=== PATIENT | female | born 1970 | race African-American/Black ===

== ENCOUNTER 2017-02-01 17:05 | Emergency (ER) | payer OTHER ==
[2017-02-01 17:39] LABS: Bilirubin Negative (Negative); Blood, Urine Large (Negative); Glucose, Urine (Dipstick) >=1000 mg/dL (Negative); Ketone, Urine Negative (Negative); Nitrite Positive (Negative); Protein, Urine (Dipstick) Negative (Neg-Trace)
[2017-02-01 17:41] LABS: Bacteria/HPF 4+ HPF (None Seen); Hyaline Casts/LPF 0-3 HYALINE CAST LPF (0-3 Hyaline); RBC/HPF GREATER THAN 50-TNTC HPF (0-3); Squamous Epithelial None Seen HPF (0-3)
[2017-02-01] MEDS ORDERED: Acetaminophen 500 MG TAB ONE (17:43)
[2017-02-01] MEDS ORDERED: cefTRIAXone\\ROCEPHIN 1 GM VIAL ONE (17:45)
[2017-02-01] MEDS ORDERED: Sodium Chloride 0.9% 100 ML ONE (17:45)
[2017-02-01 18:04] LABS: #Basophils 0.1 thou/uL (0.0-0.2); #Lymphocytes 1.3 thou/uL (1.20-3.40); #Monocytes 0.5 thou/uL (0.11-0.59); #Neutrophils 4.6 thou/uL (1.40-6.50); %Basophils 0.8 % (0.0-1.0); %Eosinophils 0.1 % (0.0-10.0); %Lymphocytes 20.3 % (21.0-51.0); %Monocytes 8.2 % (0.0-10.0); Hematocrit 37.8 % (36.0-47.0); Mean Platelet Volume 7.6 fL (7.4-10.4); Red Blood Cell (RBC) Count 4.19 mill/uL (4.20-5.40); White Blood Cell (WBC) Count 6.6 thou/uL (4.8-10.8)
[2017-02-01 18:21] LABS: Lactic Acid - Sepsis 1.1 mmol/L (0.5-2.2)
[2017-02-01 18:22] LABS: ALT (SGPT) 36 U/L (8-55); AST (SGOT) 32 U/L (5-34); Alkaline Phosphatase 72 U/L (40-150); Anion Gap 11 mmol/L (10-20); BUN (Urea Nitrogen) 5 mg/dL (7.0-18.7); Bilirubin, Total 0.5 mg/dL (0.2-1.2); Calc. Creatinine Clearance 0 mL/min (70-130); Calcium 9.6 mg/dL (7.8-10.44); Carbon Dioxide 28 mmol/L (22-29); Chloride 98 mmol/L (98-107); Estimated GFR-MDRD 81; Globulin 4.2 g/dL (2.4-3.5)
== END 2017-02-01 19:35 | disposition home or self-care (01) ==
LOC: ERS 17:05
DX: N12 Tubulo-interstitial nephritis, not specified as acute or chronic (principal); E03.9 Hypothyroidism, unspecified; E78.5 Hyperlipidemia, unspecified; I10 Essential (primary) hypertension; E11.9 Type 2 diabetes mellitus without complications; F41.9 Anxiety disorder, unspecified
CPT/HCPCS: 80053; 81003; 81015; 81025; 83605; 85025; 87077; 87086; 87186; 96365; J0696; J7050

== ENCOUNTER 2018-10-12 14:12 | Emergency (ER) | payer OTHER, SELFPAY ==
[2018-10-12 16:13] LABS: #Basophils 0.1 thou/uL (0.0-0.2); #Eosinphils 0.1 thou/uL (0.0-0.7); #Lymphocytes 2.4 thou/uL (1.20-3.40); #Monocytes 0.5 thou/uL (0.11-0.59); #Neutrophils 3.7 thou/uL (1.40-6.50); %Basophils 1.2 % (0.0-1.0); %Eosinophils 0.8 % (0.0-10.0); %Lymphocytes 35.4 % (21.0-51.0); %Monocytes 7.3 % (0.0-10.0); %Neutrophils 55.3 % (42.0-75.0); Mean Corpuscular HGB CONC 33.8 g/dL (32.0-36.0); Mean Corpuscular Hemoglobin 30.3 pg (27.0-31.0); Mean Corpuscular Volume 89.7 fL (78.0-98.0); Mean Platelet Volume 9.1 fL (7.4-10.4); Platelet Count 251 thou/uL (130-400); RBC Distribution Width 13.1 % (11.5-14.5); Red Blood Cell (RBC) Count 3.63 mill/uL (4.20-5.40); White Blood Cell (WBC) Count 6.7 thou/uL (4.8-10.8)
[2018-10-12 16:34] LABS: ALT (SGPT) 18 U/L (8-55); AST (SGOT) 20 U/L (5-34); Albumin 3.6 g/dL (3.5-5.0); Alkaline Phosphatase 82 U/L (40-150); Anion Gap 11 mmol/L (10-20); BUN (Urea Nitrogen) 8 mg/dL (7.0-18.7); Bilirubin, Total 0.4 mg/dL (0.2-1.2); Calc. Creatinine Clearance 0 mL/min (70-130); Calcium 8.7 mg/dL (7.8-10.44); Carbon Dioxide 25 mmol/L (22-29); Chloride 102 mmol/L (98-107); Estimated GFR-MDRD 84; Globulin 2.8 g/dL (2.4-3.5); Glucose 260 mg/dL (70-105); Potassium 4.1 mmol/L (3.5-5.1); Protein, Total 6.4 g/dL (6.0-8.3); Sodium 134 mmol/L (136-145)
== END 2018-10-12 16:58 | disposition home or self-care (01) ==
LOC: ERS 14:12
DX: M79.89 Other specified soft tissue disorders (principal); E11.9 Type 2 diabetes mellitus without complications; Z79.4 Long term (current) use of insulin; E03.9 Hypothyroidism, unspecified; F41.9 Anxiety disorder, unspecified; Z79.84 Long term (current) use of oral hypoglycemic drugs; Z79.899 Other long term (current) drug therapy
CPT/HCPCS: 36415; 80053; 85025; 99283

== ENCOUNTER 2019-10-14 15:27 | Emergency (ER) | payer OTHER ==
[2019-10-15 15:41] LABS: SARS-CoV-2 MS2 Positive; SARS-CoV-2 N Gene Positive; SARS-CoV-2 S Gene Positive; SARS-CoV-2 orf1ab Positive
== END 2019-10-14 16:30 | disposition home or self-care (01) ==
LOC: ERS 15:27
DX: U07.1 COVID-19 (principal); E11.9 Type 2 diabetes mellitus without complications; E03.9 Hypothyroidism, unspecified; F41.9 Anxiety disorder, unspecified
CPT/HCPCS: 87635; 99283; U0003

== ENCOUNTER 2019-11-20 08:42 | Inpatient (IN) | payer OTHER ==
[2019-11-20 09:47] LABS: Hemoglobin 11.5 g/dL (12.0-16.0); Mean Corpuscular HGB CONC 32.1 g/dL (32.0-36.0); Mean Corpuscular Hemoglobin 26.2 pg (27.0-31.0); Mean Corpuscular Volume 81.7 fL (78.0-98.0); Mean Platelet Volume 10.2 fL (7.4-10.4); Platelet Count 319 thou/uL (130-400); RBC Distribution Width 20.1 % (11.5-14.5); Red Blood Cell (RBC) Count 4.39 mill/uL (4.20-5.40); White Blood Cell (WBC) Count 17.6 thou/uL (4.8-10.8)
[2019-11-20 09:56] LABS: BHCG - Serum Negative (NEGATIVE); Pregs Control Background? CLEAR/WHITE (CLR/WHITE); Pregs Control Bar Appear? YES (CONTROL BAR)
[2019-11-20 10:24] LABS: ALT (SGPT) 16 U/L (8-55); AST (SGOT) 20 U/L (5-34); Alkaline Phosphatase 82 U/L (40-110); Anion Gap 18 mmol/L (10-20); BUN (Urea Nitrogen) 8 mg/dL (7.0-18.7); Bilirubin, Total 0.7 mg/dL (0.2-1.2); Calc. Creatinine Clearance 0 mL/min (70-130); Calcium 9.6 mg/dL (7.8-10.44); Carbon Dioxide 22 mmol/L (22-29); Chloride 98 mmol/L (98-107); Estimated GFR-MDRD 70; Globulin 4.3 g/dL (2.4-3.5); Glucose 428 mg/dL (70-105); Potassium 4.2 mmol/L (3.5-5.1); Protein, Total 8.3 g/dL (6.0-8.3); Sodium 134 mmol/L (136-145)
[2019-11-20 10:56] LABS: Band 32 % (5-11); Lymphocytes 3 % (21-51); Metamyelocyte 1 % (0-0); Monocytes 7 % (0-10); Neutrophil 57 % (42-75); Platelet Morphology Comment Appears Adequate; Polychromasia SLIGHT = 2-3 cells (100X) (0-2/hpf)
[2019-11-20] MEDS ORDERED: Ondansetron PF 4 MG/2 ML Vial ONE (10:56)
[2019-11-20] MEDS ORDERED: Morphine 4 MG/ML VIAL ONE (10:56)
[2019-11-20 10:57] LABS: MDiff Complete? YES
[2019-11-20 11:12] LABS: CK (CPK) 71 U/L (29-168); Lipase 15 U/L (8-78)
[2019-11-20 11:25] LABS: Bilirubin Negative (Negative); Blood, Urine 3+ (Negative); Glucose, Urine (Dipstick) Greater than 1000 mg/dL (Negative); Ketone, Urine 40 mg/dL (Negative); Leukocyte 25 Leu/uL (Negative); Nitrite Negative (Negative); Protein, Urine (Dipstick) 20 mg/dL (Neg-Trace); Specific Gravity, Urine 1.021 (1.002-1.036); Urobilinogen Normal mg/dL (Less than 2)
[2019-11-20 11:33] LABS: Clarity Hazy (Clear); RBC/HPF Greater than 50 HPF (0-3)
[2019-11-20 11:34] LABS: Bacteria/HPF 3+ HPF (None Seen); Squamous Epithelial 0-3 HPF (0-3)
--- NOTE | 2019-11-20 12:01 | CT ---
CT ABDOMEN AND PELVIS WITH IV CONTRAST: Date: 11/20/2019 INDICATION: Left lower quadrant pain. No comparison. FINDINGS: Lung bases clear. Liver, spleen, and pancreas unremarkable. Stomach and duodenum unremarkable. Adrenal glands normal. Kidneys unremarkable. Small bowel loops appear normal caliber. Colon unremarkable. Aorta normal caliber. There is a large, heterogeneous mass arising from the pelvis and extending into the lower and mid abd omen. This mass appears most consistent with an enlarged uterus with numerous uterine fibroids. There is a large apparent fibroid projecting to the left of midline and there is enlarged uterus which karyna sures up to 6.0 cm. Internal lucency and gas indicates central necrosis. A secondary infection or gas -producing organisms cannot be excluded given the diffuse gas within this mass. There are other low density masses seen in this apparently enlarged uterus which would be consistent with numerous other necrotic fibroids. IMPRESSION: 1. A large, heterogeneous mass arises from the pelvis into the lower and mid abdomen. This appears t o most likely represent an enlarged uterus with numerous fibroids, several of which show low attenuat ion indicating necrosis. There is a 6.0 cm area of low attenuation within this enlarged uterus to the left of midline which has internal gas. Secondary infection with gas-producing organisms is the prim kojo concern. Findings relayed to Shona Garcia, nurse practitioner taking care of the patient in the ER. CODE CR. POS: JOJO
[2019-11-20] MEDS ORDERED: SODIUM CHLORIDE 0.9% IVPB SCH (12:45)
[2019-11-20] MEDS ORDERED: GENTAMICIN SULFATE IVPB SCH (12:45)
--- NOTE | 2019-11-20 13:01 | PDOC.FPRHP ---
- History of Present Illness Chief Complaint: Abdominal pain History of Present Illness: Consulted by Dr Tang for medical management of pts chronic medical problems. Ms Cortés is a 49yo female with pmh of diabetes, HLD, HTN, hypothyroidism who presents with abdominal pain of 3 days duration. Found to have necrotic fibroid as likely source of sepsis. Dr Tang has ordered Gentamicin for ABx in ED. She has been started on IV fluids but still febrile and tachycardic. Endorses fever , chills. Denies dysuria, vaginal bleeding, cough, SOB. ED Course: 4mg Morphine, 4mg Zofran, 2L NS, Gentamicin - Allergies/Adverse Reactions Allergies Allergy/AdvReac Type Severity Reaction Status Date / Time No Known Allergies Allergy Verified 11/20/19 15:53 - Home Medications Medication Instructions Recorded Confirmed Type Lisinopril [Zestril] 2.5 mg PO DAILY 02/06/13 11/20/19 History metFORMIN HCl 1,000 mg PO BID-WM 02/06/13 11/20/19 History Escitalopram Oxalate 10 mg PO QAM 11/20/19 11/20/19 History Ferrous Sulfate, Dried [Iron] 65 mg PO QAM 11/20/19 11/20/19 History HumuLIN 70/30 [HumuLIN 70/30 Vial] 10 units SC QAM 11/20/19 11/20/19 History HumuLIN 70/30 [HumuLIN 70/30 Vial] 15 units SC 11/20/19 11/20/19 History Levothyroxine Sodium [Euthyrox] 125 mg PO 0600 11/20/19 11/20/19 History Holland-3 Fatty Acids/Fish Oil [Fish 1 cap PO QAM 11/20/19 11/20/19 History Oil 1,000 mg Capsule] Rosuvastatin [Crestor] 10 mg PO DAILY 11/20/19 11/20/19 History - History PMHx: HTN, HLD, Hypothyroidism, IDDMII PSHx: Denies FHx: Mother & Father with cancer Social: Denies alcohol, tobacco and drug use. - Review of Systems General: reports: fever/chills, weight/appetite/sleep changes (decreased appetite, increased thirst) Eyes: denies: eye pain, vision changes ENT: denies: nasal congestion, rhinorrhea Respiratory: denies: cough, congestion, shortness of breath Cardiovascular: denies: chest pain Gastrointestinal: reports: abdominal pain. denies: nausea, vomiting, diarrhea, constipation Genitourinary: reports: incontinence (due to pain). denies: dysuria Skin: denies: rashes, lesions Musculoskeletal: denies: pain, swelling Neurological: denies: syncope, weakness - Vital signs BP: 172/96 HR:111 RR: 17 Tmax: 102.1 Pox: 100% on RA Wt: 113.4kg - Physical Exam Constitutional: NAD, awake, alert and oriented, well developed HEENT: normocephalic and atraumatic, PERRLA, conjunctiva clear, MMM, oropharynx clear -HEENT: Dry MM Neck: supple, trachea midline Heart: no murmurs/rubs/gallops -Heart: Tachycardic Lungs: CTAB, no respiratory distress, good air movement, no retractions Abdomen: soft, bowel sounds present, other (Enlarged uterus, tender to palpation , no rebound or rigidity) Musculoskeletal: normal structure Neurological: no focal deficit Skin: no rash/lesions, good turgor Heme/Lymphatic: no unusual bruising or bleeding Psychiatric: normal mood and affect, good judgment and insight, intact recent and remote memory FMR H&P: Results - Labs Result Diagrams: 11/21/19 06:12 11/21/19 06:12 Lab results: WBC 17.6 thou/uL (4.8-10.8) H 11/20/19 09:22 Hgb 11.5 g/dL (12.0-16.0) L 11/20/19 09:22 Hct 35.9 % (36.0-47.0) L 11/20/19 09:22 MCV 81.7 fL (78.0-98.0) 11/20/19 09:22 Plt Count 319 thou/uL (130-400) 11/20/19 09:22 Band Neuts % (Manual) 32 % (5-11) H 11/20/19 09:22 Sodium 134 mmol/L (136-145) L 11/20/19 09:22 Potassium 4.2 mmol/L (3.5-5.1) 11/20/19 09:22 Chloride 98 mmol/L (98-107) 11/20/19 09:22 Carbon Dioxide 22 mmol/L (22-29) 11/20/19 09:22 BUN 8 mg/dL (7.0-18.7) 11/20/19 09:22 Creatinine 1.02 mg/dL (0.6-1.1) 11/20/19 09:22 Glucose 428 mg/dL (70-105) H 11/20/19 09:22 Lactic Acid 2.6 mmol/L (0.5-2.2) H 11/20/19 09:22 Calcium 9.6 mg/dL (7.8-10.44) 11/20/19 09:22 Total Bilirubin 0.7 mg/dL (0.2-1.2) 11/20/19 09:22 AST 20 U/L (5-34) 11/20/19 09: ALT 16 U/L (8-55) 11/20/19 09:22 Alkaline Phosphatase 82 U/L (40-110) 11/20/19 09:22 Creatine Kinase 71 U/L (29-168) 11/20/19 09:24 Serum Total Protein 8.3 g/dL (6.0-8.3) 11/20/19 09:22 Albumin 4.0 g/dL (3.5-5.0) 11/20/19 09:22 Lipase 15 U/L (8-78) 11/20/19 09:24 Urine Ketones 40 mg/dL (Negative) A 11/20/19 11:01 Urine Blood 3+ (Negative) A 11/20/19 11:01 Urine Nitrite Negative (Negative) 11/20/19 11:01 Ur Leukocyte Esterase 25 David/uL (Negative) A 11/20/19 11:01 Urine RBC Greater than 50 HPF (0-3) A 11/20/19 11:01 Urine WBC 7-10 HPF (0-3) A 11/20/19 11:01 Ur Squamous Epith Cells 0-3 HPF (0-3) 11/20/19 11:01 Urine Bacteria 3+ HPF (None Seen) A 11/20/19 11:01 - Radiology Interpretation CT scan - abdomen Status: image reviewed by me, report reviewed by me Additional comment: Large heterogeneous mass- likely uterus. Enlarged uterus with numerous fibroids , several with low attenuation indicating necrosis. 6cm area of low attenuation within enlarged uterus to left of midline with internal gas. Concern for gas producing organisms. FMR H&P: A/P - Plan Sepsis likely 2/2 necrotic uterine fibroid - Tachycardic, febrile with leukocytosis - Enlarged uterus with 6cm area of low attenuation within uterus concerning for gas producing organsim - Primary team nutritionist public health, Dr Tnag managing Abx, Received Gent in ED. Continued on Ceftriaxone, Doxy, and Flagyl. - Blood cx pending - Ordered procal and repeat lactate. Initial lactate 2.6 - s/p 2L NS. Ordered another 1L. Monitor fluid status with strict I&Os - No need to keep NPO per Dr Tang - [place] and [place]i PRN - Admit to supervisor product inspection floor IDDMII - Residents consulted for care of chronic medical conditions primarily DMII. - BG 400's however no anion gap. Likely elevated 2/2 infection. - Continue 70/30 at home dose. Will resume Metformin in AM - Will continue aggressive PO/IV hydration - SSI and CC diet HLD - Continue home meds Hypothyroidism - Continue home meds Anxiety/Depression - Continue home meds Code Status: FULL DVT ppx: SCDs PCP: Mikel Addendum - Attending - Attending Attestation Date/Time: 11/21/19 [id number] I personally evaluated the patient and discussed the management with Dr. Kang. I agree with the History, Examination, Assessment and Plan documented above with any addition or exceptions noted below.
[2019-11-20] MEDS ORDERED: Acetaminophen 500 MG TAB ONE (13:10)
[2019-11-20] MEDS ORDERED: Dextrose 5% in Water 1,000 ML IV PRN (13:40)
[2019-11-20] MEDS ORDERED: HYDROcodone/Acetaminophen 5/325 mg Tablet PO PRN (13:40)
[2019-11-20] MEDS ORDERED: Ondansetron ODT 4 MG TAB PO PRN (13:40)
[2019-11-20] MEDS ORDERED: Lactated Ringer's 1,000 ML IV SCH (13:40)
[2019-11-20] MEDS ORDERED: Calcium Carbonate 500 MG ChewTAB PO PRN (13:40)
[2019-11-20] MEDS ORDERED: Ondansetron PF 4 MG/2 ML Vial IVP PRN (13:40)
[2019-11-20] MEDS ORDERED: Dextrose 50% Abboject 50 ML SYRINGE SLOW IVP PRN (13:40)
[2019-11-20 13:54] LABS: Hemoglobin A1c 10.4 % (4.0-6.0)
--- NOTE | 2019-11-20 14:38 | HP ---
REGULAR PHYSICIAN: Harry Rapp DO, MS CHIEF COMPLAINT: Abdominal pain. HISTORY OF PRESENT ILLNESS: Ms. Cortés is a 49-year-old black G2, P2, currently on her period, who presents complaining of abdominal pain, that started 3 days ago. She states that it has increased in intensity. She does report a temperature to 102 degrees at home last night. She denies associated significant nausea or vomiting, but she does report fever and chills last night. 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 She states that she has had very heavy cycles for well over a year. Her last exam was by Harry Rapp in October for this. She was put on Depo-Provera and reportedly has an ultrasound scheduled for evaluation this week. PAST MEDICAL HISTORY: Insulin-requiring diabetes. PAST SURGICAL HISTORY: [place] teeth. CURRENT MEDICATIONS: 1. Metformin 1000 b.i.d. 2. Insulin 70/30, 10 units in the morning and 15 units at night. ALLERGIES: NO KNOWN ALLERGIES. SOCIAL HISTORY: Denies tobacco, alcohol or drug use. PHYSICAL EXAMINATION: VITAL SIGNS: In the ER, her blood pressure is 177/103, her pulse is 115, her temperature is 98.2. GENERAL: She is pleasant and appears to be in no distress. CHEST: Clear to auscultation. CARDIOVASCULAR: Regular rate and rhythm. ABDOMEN: Soft, but tender to deepest palpation. On bimanual examination, there was a copious amount of blood in the vagina. No masses are palpated, although she is very tender on bimanual exam. EXTREMITIES: There is no clubbing or cyanosis. LABORATORY DATA: CBC shows a white count of 17.6, hemoglobin and hematocrit of 11.5 and 35.9, and platelet count 319,000. Chemistry shows a sodium of 134, potassium of 4.2, chloride of 98, anion gap of 18, creatinine of 1.02, and glucose of 428. Lactic acid 2.6. Serum test is negative. Urinalysis shows a specific gravity of 1.021 with 1+ protein, 4+ glucose, positive ketones, 3+ blood. Nitrites are negative. Leukocyte esterases are positive. On microscopic, there is greater than 50 rbc's. There is 7-10 wbc's, 3+ bacteria and 0-3 squamous cells. IMAGING: CT scan shows an enlarged irregular uterus with an anterior fibroid that appears to be necrosing and has gas within it. There are no abscesses located within the peritoneal cavity. The appendix is not well visualized, however. ASSESSMENT: 1. Abdominal pain. 2. Degenerating fibroid. 3. Insulin-requiring diabetes. 4. Suspected urinary tract infection with early sepsis. Doubt appendicitis as etiology due to history. PLAN: The patient will be admitted. I will cover her broad spectrum with Rocephin, doxycycline, and Flagyl. This should tow picker both pelvic and urinary tract pathogens. She has been ordered a fluid bolus as well as her antibiotics to be given MATHIEU. I have asked Family Practice to consult regarding glucose management. The patient will be admitted to the floor and be observed closely. Blood cultures, urine culture and GC chlamydia have been obtained. Job ID: [id number] [facility]
[2019-11-20] MEDS: cefTRIAXone\\ROCEPHIN 1 GM in Sodium Chloride 0.9% 100 ML IVPB SCH (14:49)
[2019-11-20] MEDS ORDERED: Iopamidol-370 76% 500 ML 1 ML ONE (15:14)
[2019-11-20] MEDS: metroNIDAZOLE 500 MG in Premix Bag 1 BAG IVPB SCH ×2 (15:41→22:47)
[2019-11-20 16:03] VITALS: BMI 38.8
[2019-11-20] MEDS: HYDROcodone/Acetaminophen 5/325 mg Tablet PO PRN ×2 (17:31→21:35)
[2019-11-20] MEDS: HumaLOG 300 UNITS/3 ML VIAL SC PRN ×2 (17:35→21:31)
[2019-11-20] MEDS ORDERED: HumuLIN 70/30 (300 UNITS/3 ML VIAL) SC SCH (21:00)
[2019-11-20] MEDS ORDERED: Rosuvastatin 10 MG TAB PO SCH (21:00)
[2019-11-21] MEDS: cefTRIAXone\\ROCEPHIN 1 GM in Sodium Chloride 0.9% 100 ML IVPB SCH (02:17)
--- NOTE | 2019-11-21 05:59 | PDOC.EVN ---
Event Note - Event Note Event Note: Rocephin/Doxycycline/Flagyl #1 Feeling some better this AM. No N/V. Tmax= 102.2 at 1300 yesterday. Tn= 99.0 BP= 109/60, P= 100. HgbA1c= 10 on admit. FP managing glucose with Metformin, 70/30 insulin with additional sliding scale. Glucoses= 428/349/293. Plan: USG this AM to further define fibroid uterus. Cont. current ABX regimen. Glucose management by FP appreciated.
[2019-11-21] MEDS ORDERED: Levothyroxine Sodium 125 MCG TAB PO SCH (06:00)
[2019-11-21] MEDS: metroNIDAZOLE 500 MG in Premix Bag 1 BAG IVPB SCH (06:11)
[2019-11-21] MEDS: HumaLOG 300 UNITS/3 ML VIAL SC PRN (06:19)
[2019-11-21] MEDS: HYDROcodone/Acetaminophen 5/325 mg Tablet PO PRN (06:20)
[2019-11-21 06:41] LABS: #Lymphocytes 0.8 thou/uL (1.20-3.40); #Monocytes 0.8 thou/uL (0.11-0.59); #Neutrophils 11.2 thou/uL (1.40-6.50); %Basophils 0.2 % (0.0-1.0); %Eosinophils 0.3 % (0.0-10.0); %Lymphocytes 6.3 % (21.0-51.0); %Monocytes 6.2 % (0.0-10.0); Hemoglobin 9.8 g/dL (12.0-16.0); Mean Corpuscular Hemoglobin 26.5 pg (27.0-31.0); Mean Corpuscular Volume 82.8 fL (78.0-98.0); Mean Platelet Volume 9.9 fL (7.4-10.4); Platelet Count 257 thou/uL (130-400); RBC Distribution Width 19.4 % (11.5-14.5); Red Blood Cell (RBC) Count 3.69 mill/uL (4.20-5.40); White Blood Cell (WBC) Count 12.8 thou/uL (4.8-10.8)
[2019-11-21 06:57] LABS: Anion Gap 13 mmol/L (10-20); BUN (Urea Nitrogen) 8 mg/dL (7.0-18.7); Calc. Creatinine Clearance 161 mL/min (70-130); Calcium 8.1 mg/dL (7.8-10.44); Carbon Dioxide 19 mmol/L (22-29); Chloride 99 mmol/L (98-107); Estimated GFR-MDRD Greater than 90; Glucose 220 mg/dL (70-105); Potassium 3.4 mmol/L (3.5-5.1); Sodium 128 mmol/L (136-145)
--- NOTE | 2019-11-21 07:22 | PDOC.FM ---
- Subjective Subjective: Pt states the norco helps control her pelvic pain, located in LL pelvis. Pt ate breakfast, but only about 25% of plate. T max overnight 101.1 glucose 200's overnight. increased AM 70/30 dose. - Objective MAR Reviewed: Yes Vital Signs & Weight: Vital Signs (12 hours) Temp Pulse Resp BP BP Pulse Ox 11/21/19 04:35 100.0 F H 100 18 126/63 95 11/21/19 00:25 99 F 100 20 109/60 93 L 11/20/19 20:55 100.4 F H 104 H 20 131/72 99 Weight Weight 112.491 kg I&O: 11/20/19 11/21/19 11/22/19 06:59 06:59 06:59 Intake Total 1680 Output Total 1150 Balance 530 Result Diagrams: 11/21/19 06:12 11/21/19 06:12 Phys Exam - Physical Examination Constitutional: NAD HEENT: moist MMs, sclera anicteric Neck: supple, full ROM Respiratory: no wheezing, no rales, no rhonchi, clear to auscultation bilateral Cardiovascular: RRR, no significant murmur, no rub Gastrointestinal: soft, no distention, positive bowel sounds LLQ abd TTP. no guarding, rebound or rosving sign. palpable mass in LLQ Musculoskeletal: no edema, pulses present Neurological: non-focal, moves all 4 limbs Psychiatric: normal affect, A&O x 3 Skin: no rash, normal turgor, cap refill <2 seconds Dx/Plan (1) Fibroid, uterine Code(s): D25.9 - LEIOMYOMA OF UTERUS, UNSPECIFIED Status: Acute (2) Sepsis Code(s): A41.9 - SEPSIS, UNSPECIFIED ORGANISM Status: Acute (3) DM w/o complication type II, uncontrolled Code(s): E11.65 - TYPE 2 DIABETES MELLITUS WITH HYPERGLYCEMIA Status: Acute (4) HLD (hyperlipidemia) Code(s): E78.5 - HYPERLIPIDEMIA, UNSPECIFIED Status: Acute (5) Hypothyroidism Code(s): E03.9 - HYPOTHYROIDISM, UNSPECIFIED Status: Acute (6) Anxiety and depression Code(s): F41.9 - ANXIETY DISORDER, UNSPECIFIED; F32.9 - MAJOR DEPRESSIVE DISORDER, SINGLE EPISODE, UNSPECIFIED Status: Acute (7) Anemia Code(s): D64.9 - ANEMIA, UNSPECIFIED Status: Acute - Plan Plan: 49 y/o F admitted for sepsis 2/2 necrotic uterine fibroid: consulted for medical management of chronic health concerns by 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 Sepsis likely 2/2 necrotic uterine fibroid - Tachycardic, febrile with leukocytosis - Enlarged uterus with 6cm area of low attenuation within uterus concerning for gas producing organsim. US pending today. - Primary team loan officer assistant, Dr Tang managing Abx, Received Gent in ED. Continued on Ceftriaxone, Doxy, and Flagyl. - Blood cx pending - procal 3.43, and repeat lactate 2.0. Initial lactate 2.6. repeat procal this am. - s/p 2L NS and 1 L LR. Monitor fluid status with strict I&Os - [place] and Zofran PRN - Admit to registration rep floor - tranferred to [place] for higher level of surgical registration rep care. IDDMII - Residents consulted for care of chronic medical conditions primarily DMII. - BG 400's however no anion gap. Likely elevated 2/2 infection. 200's overnight. - Continue 70/30 and titrate to meet requirements. Will resume Metformin - SSI and CC diet Hyponatremia - Na 128 on 11/20. 134 on admission - likely secondary to amount of IVF received. will trend. Hypokalemia - K 3.4 - 60 meq PO K-dur given AM of 11/20. HLD - Continue home meds Hypothyroidism - Continue home meds Anxiety/Depression - Continue home meds Code Status: FULL Diet: CC DVT ppx: SCDs PCP: Mikel Dispo: stable, transfer to [place] for CARBONIZER surgery Addendum - Attending - Attending Attestation Date/Time: 11/21/19 3107 I personally evaluated the patient and discussed the management with Dr. Prado. I agree with the History, Examination, Assessment and Plan documented above with any addition or exceptions noted below. Patient DM is better controlled. She is being transferred by her primary team for higher level of care.
[2019-11-21] MEDS ORDERED: Potassium Chloride 20 MEQ TAB PO SCH ×2 (07:30)
--- NOTE | 2019-11-21 08:51 | ULT ---
Pelvic sonogram transabdominal imaging HISTORY: Pelvic mass. Fibroid uterus. FINDINGS: Urinary bladder is decompressed. Very large, lobular heterogeneous structure throughout the pelvis, when correlated with sonogram, rep resents marked enlargement of the uterus. It measures up to 19.9 cm. Extensive fibroids. Echogenicity with shadowing at the left side of the uterus correlates with the gas containing mass on recent CT. It is 7.0 cm x 6.7 cm greatest diameters. Endometrium is obscured. Minimal free fluid in the pelvis. Ovary is not visualized. IMPRESSION : Extensive fibroid involvement of the enlarged uterus. Findings correlate with recent CT exam.
[2019-11-21] MEDS ORDERED: Escitalopram Oxalate 10 mg Tablet PO SCH (09:00)
[2019-11-21] MEDS ORDERED: Fish Oil 1,000 MG CAP PO SCH (09:00)
[2019-11-21] MEDS ORDERED: HumuLIN 70/30 (300 UNITS/3 ML VIAL) SC SCH ×2 (09:00)
[2019-11-21] MEDS ORDERED: metFORMIN 500 MG TAB PO SCH (09:00)
[2019-11-21] MEDS ORDERED: Ferrous Sulfate 325 MG TAB PO SCH (09:00)
[2019-11-21] MEDS ORDERED: Lisinopril 2.5 MG TAB PO SCH (09:00)
[2019-11-21 11:34] VITALS: BP 130/64; TEMP 98.9
[2019-11-21 13:50] LABS: SARS-CoV-2 MS2 Positive; SARS-CoV-2 N Gene Positive; SARS-CoV-2 S Gene Negative; SARS-CoV-2 by NAA DETECTED (NotDetected); SARS-CoV-2 orf1ab Positive
--- NOTE | 2019-11-21 14:24 | DIS ---
DATE OF ADMISSION: 11/20/2019 DATE OF DISCHARGE: 11/21/2019 TIME OF SERVICE: 0900 hours. Ms. Cortés's ultrasound and CT scan confirm the presence of gas in the uterine fibroid. Her pain is reasonably well controlled and she appears stable. Vital signs include a temperature of 98.8, pulse 98, respirations 20, and blood pressure 118/60. Hematocrit this morning is 30.5% with 12.8 white count and platelets are 257. Sodium is slightly hyponatremic at 128, potassium 3.4, creatinine is 0.6. [id number] glucose was 220. Blood cultures are pending. Urine culture had early gram-negative juan pablo. I discussed the patient's case with Dr. 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 Due to this, we will go ahead and initiate transfer to [facility] in [facility] per Dr. Larry's request for higher level of care. Transfer process has been initiated at 0858 hours at [facility]. Of note, the patient was noted to have had a positive COVID test on 10/14/2019, which puts her greater than 20 days from positivity, which per CDC guidelines even with severe disease would be outside the risk of contagion. Job ID: [id number]
[2019-11-21 22:55] LABS: Chlam.trachomatis by PCR,Urine Not Detected (NotDetected)
== END 2019-11-21 13:20 | disposition short-term general hospital (02) | DRG 871 ==
LOC: ERS 08:42 → 3SE 13:26
PROVIDERS: ADMIT Obstetrics & Gynecology; ATTEND Obstetrics & Gynecology
DX: A41.9 Sepsis, unspecified organism (principal); A48.0 Gas gangrene; E87.1 Hypo-osmolality and hyponatremia; E11.52 Type 2 diabetes mellitus with diabetic peripheral angiopathy with gangrene; I10 Essential (primary) hypertension; E03.9 Hypothyroidism, unspecified; E78.5 Hyperlipidemia, unspecified; F41.9 Anxiety disorder, unspecified; F32.9 Major depressive disorder, single episode, unspecified; D25.9 Leiomyoma of uterus, unspecified; D64.9 Anemia, unspecified; E87.6 Hypokalemia; Z79.899 Other long term (current) drug therapy; Z79.4 Long term (current) use of insulin
CPT/HCPCS: 36415; 36416; 74177; 76856; 80048; 80053; 81003; 81015; 82550; 83036; 83605; 83690; 84145; 84703; 85025; 87040; 87077; 87086; 87186; 87491; 87591; 87635; J0696; J1580; J1815; J2270; J2405; J3490; J7050; Q9967; U0003

== ENCOUNTER 2020-07-15 23:10 | Emergency (ER) | payer OTHER ==
[2020-07-15 23:41] LABS: Bacteria/HPF 3+ HPF (None Seen); Bilirubin Negative (Negative); Blood, Urine Negative (Negative); Clarity Clear (Clear); Glucose, Urine (Dipstick) Greater than 1000 mg/dL (Negative); Ketone, Urine Negative (Negative); Leukocyte 250 Leu/uL (Negative); Nitrite 2+ (Negative); Protein, Urine (Dipstick) Negative (Neg-Trace); Urobilinogen Normal mg/dL (Less than 2); WBC/HPF Greater than 50 HPF (0-3)
[2020-07-15 23:42] LABS: Pregnancy Test - Urine (BHCG) Negative (Negative); Pregu Control Background? CLEAR/WHITE (CLR/WHITE); Pregu Control Bar Appear? YES (CONTROL BAR)
[2020-07-16] MEDS ORDERED: cefTRIAXone\\ROCEPHIN 1 GM VIAL ONE (00:20)
[2020-07-16 00:36] LABS: #Lymphocytes 1.1 thou/uL (1.20-3.40); #Monocytes 0.7 thou/uL (0.11-0.59); #Neutrophils 5.7 thou/uL (1.40-6.50); %Basophils 0.4 % (0.0-1.0); %Eosinophils 0.3 % (0.0-10.0); %Lymphocytes 14.7 % (21.0-51.0); %Monocytes 9.1 % (0.0-10.0); %Neutrophils 75.5 % (42.0-75.0); Hemoglobin 13.2 g/dL (12.0-16.0); Mean Corpuscular HGB CONC 34.2 g/dL (32.0-36.0); Mean Corpuscular Hemoglobin 31.2 pg (27.0-31.0); Mean Corpuscular Volume 91.2 fL (78.0-98.0); Mean Platelet Volume 9.2 fL (7.4-10.4); Platelet Count 215 thou/uL (130-400); RBC Distribution Width 12.5 % (11.5-14.5); Red Blood Cell (RBC) Count 4.22 mill/uL (4.20-5.40); White Blood Cell (WBC) Count 7.6 thou/uL (4.8-10.8)
[2020-07-16] MEDS ORDERED: Nitrofurantoin Monohyd/M-Cryst 100 MG CAP PO SCH (00:45)
[2020-07-16 00:54] LABS: ALT (SGPT) 15 U/L (8-55); AST (SGOT) 20 U/L (5-34); Albumin 3.6 g/dL (3.5-5.0); Alkaline Phosphatase 94 U/L (40-110); Anion Gap 11 mmol/L (10-20); BUN (Urea Nitrogen) 7 mg/dL (7.0-18.7); Bilirubin, Total 0.9 mg/dL (0.2-1.2); Calc. Creatinine Clearance 0 mL/min (70-130); Calcium 9.1 mg/dL (7.8-10.44); Carbon Dioxide 27 mmol/L (22-29); Chloride 99 mmol/L (98-107); Globulin 3.9 g/dL (2.4-3.5); Glucose 344 mg/dL (70-105); Potassium 4.3 mmol/L (3.5-5.1); Protein, Total 7.5 g/dL (6.0-8.3); Sodium 133 mmol/L (136-145)
[2020-07-16] MEDS ORDERED: Acetaminophen 500 MG TAB ONE (01:05)
== END 2020-07-16 01:55 | disposition home or self-care (01) ==
LOC: ERS 23:10
DX: N12 Tubulo-interstitial nephritis, not specified as acute or chronic (principal); E11.65 Type 2 diabetes mellitus with hyperglycemia; E03.9 Hypothyroidism, unspecified; I10 Essential (primary) hypertension; Z79.4 Long term (current) use of insulin; Z79.899 Other long term (current) drug therapy
CPT/HCPCS: 36415; 80053; 81003; 81015; 81025; 83605; 85025; 87040; 87077; 87086; 87186; 96365; J0696